=== PATIENT | female | born 1975 | race Caucasian/White ===

== ENCOUNTER 2023-05-29 10:02 | Emergency (ER) | payer OTHER ==
[2023-05-29 10:21] VITALS: BP 126/72; PULSE 68; RESP 17; TEMP 98; BMI 27.6
[2023-05-29] MEDS ORDERED: ACETAMINOPHEN 500 MG TABLET (FP) PO ONE (11:14)
[2023-05-29] MEDS ORDERED: LIDOCAINE 5% TOPICAL PATCH TP ONE (11:14)
[2023-05-29] MEDS ORDERED: ONDANSETRON *ODT* 4 MG TABLET SL ONE (11:36)
[2023-05-29] MEDS ORDERED: ONDANSETRON *ODT* 4 MG TABLET ONE (12:40)
[2023-05-29] MEDS ORDERED: LIDOCAINE 4% PATCH TP ONE (12:41)
[2023-05-29] MEDS ORDERED: ACETAMINOPHEN 325 MG TABLET (FP) ONE (12:41)
[2023-05-29] MEDS ORDERED: LIDOCAINE PATCH REMOVAL MC SCH (22:00)
== END 2023-05-29 14:00 | disposition home or self-care (01) ==
LOC: JER 10:02
DX: S06.0X0D Concussion without loss of consciousness, subsequent encounter (principal); R51.9 Headache, unspecified; M54.9 Dorsalgia, unspecified; R11.0 Nausea; H53.8 Other visual disturbances; W00.1XXD Fall from stairs and steps due to ice and snow, subsequent encounter
CPT/HCPCS: 70450-TC; 72125-TC; 72128-TC; 73030-TC-RT-FY; 99284-25; Q0162

== ENCOUNTER 2024-03-03 08:38 | Emergency (ER) | payer OTHER ==
[2024-03-03 08:48] VITALS: BP 123/66; PULSE 84; RESP 18; TEMP 97.7; BMI 33.0
[2024-03-03] MEDS ORDERED: DEXAMETHASONE SOD PHOSPHATE 10 MG/1 ML VIAL ONE (11:39)
[2024-03-03] MEDS ORDERED: ALBUTEROL SO4 2.5/IPRATROPIUM 0.5 INH SOL 3 ML VIAL.NEB. NEB ONE (11:40)
[2024-03-03] MEDS: DEXAMETHASONE LIQUID 0.5 MG/5 ML PO ONE (11:51)
[2024-03-03] MEDS: ALBUTEROL SO4 2.5/IPRATROPIUM 0.5 INH SOL 3 ML VIAL.NEB. NEB ONE (11:52)
[2024-03-03] MEDS ORDERED: ACETAMINOPHEN 500 MG TABLET (FP) ONE (12:14)
[2024-03-03] MEDS: ACETAMINOPHEN 500 MG TABLET (FP) PO ONE (12:19)
== END 2024-03-03 13:12 | disposition home or self-care (01) ==
LOC: JER 08:38
PROC: 3E0F7GC Introduction of Other Therapeutic Substance into Respiratory Tract, Via Natural or Artificial Opening (ICD-10-PCS; principal; 2024-03-03)
DX: R05.9 Cough, unspecified (principal); J98.01 Acute bronchospasm; Z20.822 Contact with and (suspected) exposure to COVID-19
CPT/HCPCS: 0241U-QW; 71046-TC-FY; 93005; 93010; 99285-25